=== PATIENT | female | born 1980 | race Asian ===

== ENCOUNTER 2016-03-14 19:20 | Inpatient (IN) | payer SELFPAY ==
[~2016-03-14] VITALS: Ht 154.9 cm; Wt 71.7 kg
[2016-03-14 19:40] VITALS: BP 126/86
[2016-03-14] MEDS ORDERED: LIDOCAINE 1% 500 MG/50 ML VIAL INJ SCH (19:55)
[2016-03-14] MEDS ORDERED: METHYLERGONOVINE 0.2 MG/ML AMP IM PRN (19:55)
[2016-03-14] MEDS ORDERED: PROMETHAZINE 25 MG/ML VIAL IVP PRN (19:55)
[2016-03-14] MEDS ORDERED: CARBOPROST 250 MCG/ML AMP IM PRN (19:55)
[2016-03-14] MEDS ORDERED: OXYTOCIN 10 UNITS/ML VIAL IM SCH (19:55)
[2016-03-14] MEDS ORDERED: NALBUPHINE HYDROCHLORIDE 10 MG/ML VIAL IVP PRN (19:55)
[2016-03-14] MEDS ORDERED: OXYTOCIN 20 UNITS/LR PREMIX 1,000 ML IV SCH (20:00)
[2016-03-14] MEDS ORDERED: GLUCOPHAGE XR500 MG PO (22:01)
[2016-03-14] MEDS: LACTATED RINGERS 1,000 ML IV SCH (22:50)
[2016-03-14] MEDS ORDERED: MISOPROSTOL 25 MCG TAB ONE (23:03)
[2016-03-14] MEDS: MISOPROSTOL 25 MCG TAB VG PRN (23:10)
[2016-03-15] MEDS ORDERED: MISOPROSTOL 25 MCG TAB ONE (03:29)
[2016-03-15] MEDS: LACTATED RINGERS 1,000 ML IV SCH ×4 (03:39→20:43)
[2016-03-15] MEDS: MISOPROSTOL 25 MCG TAB VG PRN (03:47)
[2016-03-15] MEDS ORDERED: OXYTOCIN 20 UNITS/LR PREMIX 1,000 ML IV ONE ×2 (05:41→22:55)
[2016-03-15] MEDS ORDERED: NALBUPHINE HYDROCHLORIDE 10 MG/ML VIAL ONE (06:07)
[2016-03-15] MEDS ORDERED: ROPIVACAINE 0.2%/NS PREMIX 250 ML EPI ONE (06:26)
--- NOTE | 2016-03-15 07:12 | NUR ---
PATIENT HAS BEEN SCREENED AND CATEGORIZED LOW NUTRITION RISK. PATIENT WILL BE SEEN WITHIN 7 DAYS OF ADMISSION. 03/21/16 RUSSELL MCCABE MS, RDN
[2016-03-15] MEDS: metFORMIN 500 MG TAB PO SCH ×2 (08:00→16:57)
[2016-03-15] MEDS ORDERED: AMPICILLIN 2,000 MG in NACL 0.9% 100 ML IV SCH (10:00)
[2016-03-15] MEDS ORDERED: AMPICILLIN 2,000 MG VIAL ONE (10:04)
[2016-03-15] MEDS ORDERED: AMPICILLIN 1,000 MG VIAL ONE ×2 (14:00→18:01)
[2016-03-15] MEDS: AMPICILLIN 1,000 MG in NACL 0.9% 50 ML IV SCH ×2 (14:04→18:04)
[2016-03-15] MEDS ORDERED: CITRIC ACID/SODIUM CITRATE 30 ML UDC PO SCH (20:40)
[2016-03-15] MEDS ORDERED: CITRIC ACID/SODIUM CITRATE 30 ML UDC ONE (20:52)
[2016-03-15] MEDS ORDERED: ceFAZolin 1,000 MG VIAL ONE (20:52)
[2016-03-15] MEDS ORDERED: OXYTOCIN 10 UNITS/ML VIAL ONE (21:32)
[2016-03-15] MEDS ORDERED: ceFAZolin 1,000 MG VIAL IV ONE (21:40)
[2016-03-15] MEDS ORDERED: MORPHINE PRES FREE 10 MG/10 ML AMP IV ONE ×2 (21:40→21:42)
[2016-03-15] MEDS ORDERED: SODIUM BICARBONATE 8.4% PFS 50 MEQ/50 ML SYR IVP ONE (21:43)
[2016-03-15] MEDS ORDERED: TRIAMCINOLONE 40 MG/ML 5ML VIAL ONE (21:53)
[2016-03-15] MEDS ORDERED: NALOXONE 0.4 MG/ML VIAL IVP PRN ×2 (22:00)
[2016-03-15] MEDS ORDERED: OXYTOCIN 20 UNITS/LR PREMIX 1,000 ML IV SCH ×2 (22:00→22:11)
[2016-03-15] MEDS ORDERED: diphenhydrAMINE 50 MG/ML VIAL IVP PRN (22:00)
[2016-03-15] MEDS ORDERED: ONDANSETRON 4 MG/2 ML VIAL IVP PRN (22:00)
[2016-03-15] MEDS ORDERED: KETOROLAC 30 MG/ML VIAL IVP PRN (22:00)
[2016-03-15] MEDS ORDERED: IBUPROFEN 800 MG TAB PO PRN (22:15)
[2016-03-15] MEDS ORDERED: oxyCODONE/APAP 5/325 MG 1 TAB TAB PO PRN (22:15)
[2016-03-15] MEDS ORDERED: MEASLES, MUMPS, AND RUBELLA 1 VIAL SQVAC PRN (22:15)
[2016-03-15] MEDS ORDERED: METHYLERGONOVINE 0.2 MG/ML AMP IM PRN (22:15)
[2016-03-15] MEDS ORDERED: TRIMETHOBENZAMIDE 200 MG/2 ML SYR IM PRN (22:15)
[2016-03-15] MEDS ORDERED: TEMAZEPAM 15 MG CAP PO PRN (22:15)
[2016-03-15] MEDS ORDERED: HYDROcodone/APAP 5/325 MG 1 TAB TAB PO PRN (22:15)
[2016-03-15] MEDS ORDERED: HYDROmorphone 1 MG/ML AMP IM PRN (22:30)
[2016-03-15] MEDS ORDERED: KETOROLAC 30 MG/ML VIAL ONE (22:31)
[2016-03-16] MEDS ORDERED: INFLUENZA VIRUS VACCINE QUAD 0.5 ML SYR IMVAC SCH (02:40)
[2016-03-16] MEDS: SIMETHICONE 80 MG TAB.CHEW PO SCH (20:55)
[2016-03-16] MEDS: DOCUSATE SOD/SENNA 50/8.6 MG 1 TAB PO SCH (20:56)
[2016-03-17] MEDS ORDERED: INFLUENZA VIRUS VACCINE QUAD 0.5 ML SYR IMVAC SCH (02:50)
[2016-03-17] MEDS: DOCUSATE SOD/SENNA 50/8.6 MG 1 TAB PO SCH (21:00)
[2016-03-17] MEDS: SIMETHICONE 80 MG TAB.CHEW PO SCH (21:04)
== END 2016-03-18 14:20 | disposition home or self-care (01) | DRG 766 ==
LOC: MLD 19:20 → MFCC 03-15 22:48
PROVIDERS: ADMIT Obstetrics & Gynecology; ATTEND Obstetrics & Gynecology
PROC: 10D00Z1 Extraction of Products of Conception, Low, Open Approach (ICD-10-PCS; principal; 2016-03-15 21:00)
DX: O62.1 Secondary uterine inertia (principal); O77.0 Labor and delivery complicated by meconium in amniotic fluid; O69.81X0 Labor and delivery complicated by cord around neck, without compression, not applicable or unspecified; Z37.0 Single live birth; Z3A.39 39 weeks gestation of pregnancy